=== PATIENT | male | born 1980 | race Caucasian/White ===

== ENCOUNTER 2019-07-19 21:20 | Emergency (ER) | payer OTHER ==
[~2019-07-19] VITALS: Ht 167.6 cm; Wt 83.0 kg
[2019-07-19 21:31] VITALS: Ht 167.6 cm; Wt 83.0 kg
[2019-07-19 23:03] VITALS: BP 162/97
== END 2019-07-19 23:03 | disposition home or self-care (01) ==
LOC: ED 21:20
DX: S61.012A Laceration without foreign body of left thumb without damage to nail, initial encounter (principal); W26.0XXA Contact with knife, initial encounter; Y93.89 Activity, other specified; Y92.89 Other specified places as the place of occurrence of the external cause; Y99.0 Civilian activity done for income or pay
CPT/HCPCS: 90715; J2001; Q0092

== ENCOUNTER 2019-07-21 14:09 | Emergency (ER) | payer OTHER ==
[~2019-07-21] VITALS: Ht 172.7 cm; Wt 83.5 kg
[2019-07-21 14:16] VITALS: BP 156/79; Ht 172.7 cm; Wt 83.5 kg
== END 2019-07-21 15:35 | disposition home or self-care (01) ==
LOC: ED 14:09
DX: S61.012D Laceration without foreign body of left thumb without damage to nail, subsequent encounter (principal); X58.XXXD Exposure to other specified factors, subsequent encounter

== ENCOUNTER 2019-07-29 13:38 | Emergency (ER) | payer OTHER ==
[~2019-07-29] VITALS: Ht 167.6 cm; Wt 81.6 kg
[2019-07-29 13:43] VITALS: BP 155/91; Ht 167.6 cm; Wt 81.6 kg
== END 2019-07-29 14:53 | disposition home or self-care (01) ==
LOC: ED 13:38
DX: S61.012D Laceration without foreign body of left thumb without damage to nail, subsequent encounter (principal); X58.XXXD Exposure to other specified factors, subsequent encounter
CPT/HCPCS: A4570

== ENCOUNTER 2019-08-01 12:13 | Emergency (ER) | payer OTHER ==
[~2019-08-01] VITALS: Ht 167.6 cm; Wt 81.6 kg
[2019-08-01 12:15] VITALS: Ht 167.6 cm; Wt 81.6 kg
[2019-08-01 13:30] VITALS: BP 138/71
== END 2019-08-01 13:30 | disposition home or self-care (01) ==
LOC: ED 12:13
DX: T81.30XD Disruption of wound, unspecified, subsequent encounter (principal)